=== PATIENT | male | born 1965 | race American Indian/Alaskan Native ===

== ENCOUNTER 2020-05-02 11:10 | Emergency (ER) | payer SELFPAY ==
[2020-05-02 11:43] VITALS: BP 181/113
== END 2020-05-02 13:46 | disposition left against medical advice (07) ==
LOC: ED 11:10
DX: Z04.1 Encounter for examination and observation following transport accident (principal); Z53.21 Procedure and treatment not carried out due to patient leaving prior to being seen by health care provider